=== PATIENT | female | born 1985 | race Caucasian/White ===

== ENCOUNTER 2018-05-31 00:14 | Inpatient (IN) ==
--- NOTE | 2018-05-31 01:14 | ED ---
History of Present Illness Primary Care Physician: UNKNOWN Chief Complaint: LOF History of Present Illness: Pt is a 33y/o @ 33.1wks. She has PNC with [employer] Mejia. She was at her baby shower last night and had a gush of fluid at 8pm. She wasn't sure what it was and called the office and was advised to come in. She denies VB, ctx. +FM. OBHx: 1. 2. current Weeks Gestation:: 33 Para: 1 : 3 Review of Systems All other systems reviewed negative except as stated in HPI Medications and Allergies Allergies Allergy/AdvReac Type Severity Reaction Status Date / Time No Known Allergies Allergy Unverified 05/31/18 01:10 Home Medications Medication Instructions Recorded Confirmed Type vit-iron fum-folic ac 1 tab PO DAILY 05/31/18 05/31/18 History [ Vitamin] Exam Vital signs: Vital Signs 05/31/18 00:42 05/31/18 00:44 Temperature 97.8 F Pulse Rate 89 Respiratory Rate 20 Blood Pressure 117/60 Narrative: General: well developed, well nourished, no acute distress HEENT: normocephalic atraumatic, extraocular movements intact, neck supple Abdomen: soft, gravid, nontender, nondistended Uterus: fundus soft Extremities: full range of motion Skin: normal coloration, no rashes, no suspicious skin lesions noted Neurologic: cranial nerves 2-12 grossly intact, normal muscle tone, normal gait Psychiatric: normal mood and affect, appropriate FHTs: 120, +accels, no decels, moderate variability, reactive [place]: irregular ctx Cvx: deferred, grossly ruptured, amnisure positive Assessment and Plan - Diagnosis (1) 33 weeks gestation of Code(s): Z3A.33 - 33 weeks gestation of Status: Acute (2) premature rupture of membranes (PPROM) with unknown onset of labor Code(s): O42.919 - premature rupture of membranes, unspecified as to length of time between rupture and onset of labor, unspecified trimester Status: Acute - Plan 33y/o @ 33.1wks with PPROM. -- FHTs cat 1 -- toco with irregular ctx -- amnisure positive -- admit to [facility] -- CEFM/toco -- latency abx -- tocolytics -- BMZ x2 -- GBS and PNLs ordered Pt and counseled on findings and plan of care. Discharge Plan - Discharge Disposition Patient Disposition: 30 Still Patient - Discharge Condition Condition: Stable - Physicians Team ED Provider: Analy Lemus V Primary Care Provider: UNKNOWN, - Rxs /Orders / Referrals /Forms Prescriptions: No Action vit-iron fum-folic ac [ Vitamin] 27 mg iron- 0.8 mg Tablet 1 tab PO DAILY - Discharge Instructions Print Language: Slovak
[2018-05-31] MEDS ORDERED: Aluminum/Magnesium/Simethacone Susp 30 ML UDC PO PRN (01:17)
[2018-05-31] MEDS ORDERED: Zolpidem Tartrate 5 MG Tablet PO PRN (01:17)
[2018-05-31] MEDS ORDERED: Acetaminophen 325 MG Tablet PO PRN (01:17)
[2018-05-31 01:50] LABS: Hematocrit 37.5 % (35.0-46.0); Hemoglobin 12.7 gm/dL (11.6-15.3); Mean Corpuscular HGB Conc 33.9 % (32.0-36.0); Mean Corpuscular Hemoglobin 29.5 pg (27.0-34.0); Mean Corpuscular Volume 87.1 fL (80.0-100.0); Mean Platelet Volume 8.1 fL (7.0-11.0); Platelet Count 297 th/mm3 (150-450); Red Blood Count 4.31 mil/mm3 (4.00-5.30); Red Cell Distribution Width 13.4 % (11.6-17.2); White Blood Count 14.9 th/mm3 (4.0-11.0)
[2018-05-31 01:57] LABS: Bilirubin,Urine Negative (Negative); Clarity,Urine Clear (Clear); Color,Urine Yellow (Yellw/Straw); Glucose,Urine (UA) Negative (Negative); Leukocyte Esterase,Urine Negative (Negative); Mucus,Urine Few /lpf (Occasional); Nitrite,Urine Negative (Negative); Squamous Epithelial Cell,Urine <1 /hpf (0-5)
[2018-05-31] MEDS ORDERED: Erythromycin Inj 250 MG in Sodium Chlor 0.9% Inj 100 ML IV.SIG SCH (02:00)
[2018-05-31 02:04] LABS: Amphetamine Screen,Urine Neg (Neg); Barbiturate Screen,Urine Neg (Neg); Cannabinoid Screen,Urine Neg (Neg); Cocaine Screen,Urine Neg (Neg)
[2018-05-31 02:07] LABS: Opiate Screen,Urine Neg (Neg)
[2018-05-31] MEDS: Betamethasone Sod Phos/Acetate Inj 30 MG/5 ML Vial IM SCH ×2 (02:21→03:42)
[2018-05-31] MEDS: NIFEdipine 10 MG Capsule PO SCH ×5 (02:21→20:37)
[2018-05-31 03:10] LABS: Hepatitis A IgM Antibody Nonreactive (Nonreactive); Hepatitits B Surface Antigen Nonreactive (Nonreactive)
[2018-05-31] MEDS: Azithromycin Inj 500 MG in Sodium Chlor 0.9% Inj 250 ML IV.SIG SCH (04:05)
[2018-05-31] MEDS ORDERED: NIFEdipine 10 MG Capsule PO SCH (08:00)
[2018-05-31] MEDS: Ferrous Sulfate 325 MG Tablet PO SCH ×2 (08:34→20:37)
[2018-05-31] MEDS: Docusate Sodium 100 MG Capsule PO SCH (08:34)
[2018-05-31] MEDS: Prenatal Vit/Ca/Iron/Folic Acid Tablet PO SCH (08:34)
--- NOTE | 2018-05-31 13:16 | P.HPOB ---
History of Present Illness Primary Care Physician: UNKNOWN Chief Complaint: LOF History of Present Illness: Pt is a 33y/o @ 33.1wks. She has PNC with [employer] Mejia. She was at her baby shower last night and had a gush of fluid at 8pm. She wasn't sure what it was and called the office and was advised to come in. She denies VB, ctx. +FM. OBHx: 1. 2. current Weeks Gestation:: 33 Para: 1 : 3 Review of Systems All other systems reviewed negative except as stated in HPI Medications and Allergies Allergies Allergy/AdvReac Type Severity Reaction Status Date / Time No Known Allergies Allergy Unverified 05/31/18 01:10 Home Medications Medication Instructions Recorded Confirmed Type vit-iron fum-folic ac 1 tab PO DAILY 05/31/18 05/31/18 History [ Vitamin] Exam Vital signs: Vital Signs 05/31/18 00:42 05/31/18 00:44 Temperature 97.8 F Pulse Rate 89 Respiratory Rate 20 Blood Pressure 117/60 Narrative: General: well developed, well nourished, no acute distress HEENT: normocephalic atraumatic, extraocular movements intact, neck supple Abdomen: soft, gravid, nontender, nondistended Uterus: fundus soft Extremities: full range of motion Skin: normal coloration, no rashes, no suspicious skin lesions noted Neurologic: cranial nerves 2-12 grossly intact, normal muscle tone, normal gait Psychiatric: normal mood and affect, appropriate FHTs: 120, +accels, no decels, moderate variability, reactive [place]: irregular ctx Cvx: deferred, grossly ruptured, amnisure positive Assessment and Plan - Diagnosis (1) 33 weeks gestation of Code(s): Z3A.33 - 33 weeks gestation of Status: Acute (2) premature rupture of membranes (PPROM) with unknown onset of labor Code(s): O42.919 - premature rupture of membranes, unspecified as to length of time between rupture and onset of labor, unspecified trimester Status: Acute - Plan 33y/o @ 33.1wks with PPROM. -- FHTs cat 1 -- toco with irregular ctx -- amnisure positive -- admit to [facility] -- CEFM/toco -- latency abx -- tocolytics -- BMZ x2 -- GBS and PNLs ordered Pt and counseled on findings and plan of care. Discharge Plan - Discharge Disposition Patient Disposition: 30 Still Patient - Discharge Condition Condition: Stable - Physicians Team ED Provider: Analy Lemus V Primary Care Provider: [place], - Rxs /Orders / Referrals /Forms Prescriptions: No Action vit-iron fum-folic ac [ Vitamin] 27 mg iron- 0.8 mg Tablet 1 tab PO DAILY The patient was seen and examined by me and I participated in all vela decision making. Admit for PPROM with routine PPROM management. Reassuring testing. Bedside ultrasound with breech presentation noted. SMS
[2018-06-01] MEDS: NIFEdipine 10 MG Capsule PO SCH ×3 (01:57→14:29)
[2018-06-01] MEDS: Azithromycin Inj 500 MG in Sodium Chlor 0.9% Inj 250 ML IV.SIG SCH (03:41)
[2018-06-01] MEDS: Betamethasone Sod Phos/Acetate Inj 30 MG/5 ML Vial IM SCH (03:41)
[2018-06-01] MEDS: Ferrous Sulfate 325 MG Tablet PO SCH (09:00)
--- NOTE | 2018-06-01 09:50 | P.OBANTE ---
Subjective Interval History: Patient seen at bedside today and reports feeling "okay". She had no acute events overnight. Patient reports non-bloody clear vaginal discharge that is not malodorous. She is currently not experiencing any contractions. She denies any dysuria, suprapubic tenderness, nausea, vomiting, fevers, chills, difficulty breathing or chest pain. She also denies any recent lower extremity pain or swelling. Patient did express concern over the baby being in breach position and it was discussed with her that she will be undergoing an ultrasound later today to confirm position. Antepartum ROS: Reports: Loss of fluid, movement normal Denies: Vaginal bleeding Objective Vital Signs and I&O: Vital Signs 05/31/18 12:21 05/31/18 14:23 05/31/18 15:37 Temperature 98.3 F 98.2 F 98.1 F Pulse Rate 100 H 103 H Respiratory Rate 18 18 Blood Pressure 115/60 110/67 05/31/18 17:56 05/31/18 19:28 05/31/18 22:16 Temperature 98.1 F 97.7 F 97.9 F Pulse Rate 90 Respiratory Rate 18 Blood Pressure 115/55 L 05/31/18 23:38 05/31/18 23:39 06/01/18 02:00 Temperature 98.7 F 98.7 F Pulse Rate 87 Respiratory Rate 16 Blood Pressure 100/47 L 06/01/18 03:48 Temperature 97.7 F Pulse Rate 87 Respiratory Rate 18 Blood Pressure 98/60 L Intake & Output 05/31/18 06/01/18 06/01/18 18:59 06:59 18:59 Intake Total 1100 / 1100 1300 / 1300 Balance 1100 / 1100 1300 / 1300 Intake: IV 1100 / 1100 1300 / 1300 LR 1000 mL Inj 1,000 ML @ 125 1000 / 1000 1000 / 1000 mls/hr IV.CONT .Q8H [facility] Rx#: [id number] Ampicillin Inj 2,000 MG In NS 100 / 100 300 / 300 Inj 100 ML @ 400 mls/hr IV.SIG Q6H [facility] Rx#:[id number] Physical Exam: GENERAL: Well-nourished, well-developed patient. CARDIOVASCULAR: Regular rate and rhythm without murmurs, gallops, or rubs. RESPIRATORY: Breath sounds equal bilaterally. No accessory muscle use. ABDOMEN/GI: Abdomen soft, non-tender. FHT's: Category: 1 Baseline: 120 Reactive: Y Variability: Moderate Decels: None EXTREMITIES: No cyanosis or edema, non-tender, without signs of DVT. Assessment and Plan - Diagnosis (1) premature rupture of membranes (PPROM) with unknown onset of labor Code(s): O42.919 - premature rupture of membranes, unspecified as to length of time between rupture and onset of labor, unspecified trimester Status: Acute - Plan 33y/o @ 33.1wks with PPROM on 05/30/18 at 2000hrs. Status post betamethasone X2. -- FHTs cat 1 -- amnisure positive -- CEFM/toco -- Continue Ampicillin 2g IV Q6 until 0600 06/02/18 -- Begin Amoxicillin 500 PO TID at 0600 on 06/02/18 -- tocolytics -- GBS and PNLs ordered Pt and counseled on findings and plan of care. - Attending Attestation The patient was seen and examined by me and I participated in all vela decision making. Admited for PPROM with routine PPROM management. Reassuring testing. Bedside ultrasound with breech presentation noted by attending yesterday. Patient having ultrasound with [facility] today for EFW. SMS
[2018-06-01] MEDS: Docusate Sodium 100 MG Capsule PO SCH (09:53)
[2018-06-01] MEDS: Prenatal Vit/Ca/Iron/Folic Acid Tablet PO SCH (09:54)
[2018-06-02] MEDS: Ferrous Sulfate 325 MG Tablet PO SCH ×2 (01:18→09:02)
[2018-06-02] MEDS: NIFEdipine 10 MG Capsule PO SCH ×4 (01:18→14:05)
[2018-06-02] MEDS ORDERED: ERYTHROMYCIN BASE PO SCH (06:00)
[2018-06-02] MEDS ORDERED: Amoxicillin 250 MG Capsule PO SCH (06:00)
[2018-06-02] MEDS: Docusate Sodium 100 MG Capsule PO SCH (09:02)
[2018-06-02] MEDS: Prenatal Vit/Ca/Iron/Folic Acid Tablet PO SCH (09:02)
--- NOTE | 2018-06-02 11:18 | P.OBANTE ---
Subjective - Diagnosis (1) premature rupture of membranes (PPROM) with unknown onset of labor Diagnosis: Principal Interval History: Patient was seen at bedside this morning. There were no acute events overnight. Patient reports continued clear non-malodorous vaginal discharge and denies any vaginal bleeding. She reports good movement. Patient denies any subjective fevers, chills, shortness of breath, chest pain, nausea, or vomiting. All questions were answered to the patient's satisfaction. Objective Vital Signs and I&O: Vital Signs 06/01/18 14:37 06/01/18 15:00 06/01/18 20:00 Temperature 98.2 F 97.9 F Pulse Rate 89 91 H Respiratory Rate 18 18 Blood Pressure 111/60 100/69 100/54 L 06/02/18 02:08 06/02/18 03:00 06/02/18 08:38 Temperature 98.3 F 98.9 F Pulse Rate 85 88 Respiratory Rate 18 16 Blood Pressure 94/46 L 102/53 L Intake & Output 06/01/18 06/02/18 06/02/18 18:59 06:59 18:59 Intake Total 1200 / 1200 1000 / 1000 Balance 1200 / 1200 1000 / 1000 Intake: IV 1200 / 1200 1000 / 1000 LR 1000 mL Inj 1,000 ML @ 125 1000 / 1000 1000 / 1000 mls/hr IV.CONT .Q8H [facility] Rx#: [id number] Ampicillin Inj 2,000 MG In NS 200 / 200 Inj 100 ML @ 400 mls/hr IV.SIG Q6H [facility] Rx#:[id number] Lab and Micro Results: Microbiology 05/31/18 01:32 Group B Streptococcus Screen ([facility]) - Preliminary Genital - Genital Region Results Pending Physical Exam: GENERAL: Well-nourished, well-developed patient. CARDIOVASCULAR: Regular rate and rhythm without murmurs, gallops, or rubs. RESPIRATORY: Breath sounds equal bilaterally. No accessory muscle use. ABDOMEN/GI: Abdomen soft, non-tender. Fundus: [-] GENITOURINARY: External Genitalia: intact and normal in appearance Cervix: [-] Dilatation: [-] Effacement: [-] Station: [-] Presentation: [-] Membranes: [-] Uterine Contractions: [-] FHT's: Category: [-] Baseline: [-] Reactive: [-] Variability: [-] Decels: [-] EXTREMITIES: No cyanosis or edema, non-tender, without signs of DVT. Assessment and Plan - Diagnosis (1) premature rupture of membranes (PPROM) with unknown onset of labor Code(s): O42.919 - premature rupture of membranes, unspecified as to length of time between rupture and onset of labor, unspecified trimester Status: Acute - Plan 33y/o @ 33.1wks with PPROM on 05/30/18 at 2000hrs. Status post betamethasone X2. -- FHTs cat 1 -- amnisure positive -- CEFM/toco -- Continue Amoxicillin 500 PO TID -- tocolytics -- GBS negative/ Rubella immune Pt and counseled on findings and plan of care.
[2018-06-03] MEDS: NIFEdipine 10 MG Capsule PO SCH ×5 (02:38→20:33)
[2018-06-03] MEDS: Ferrous Sulfate 325 MG Tablet PO SCH ×3 (03:05→20:33)
[2018-06-03] MEDS: Docusate Sodium 100 MG Capsule PO SCH (08:23)
[2018-06-03] MEDS: Prenatal Vit/Ca/Iron/Folic Acid Tablet PO SCH (08:23)
--- NOTE | 2018-06-03 10:39 | P.OBANTE ---
Subjective Interval History: Patient was seen at bedside this morning. There were no acute events overnight. Patient no longer experiencing any loss of clear non-malodorous vaginal discharge and denies any vaginal bleeding. She reports good movement. Patient denies any subjective fevers, chills, shortness of breath, chest pain, nausea, or vomiting. All questions were answered to the patient's satisfaction. Objective Vital Signs and I&O: Vital Signs 06/02/18 13:00 06/02/18 15:00 06/02/18 16:00 Temperature 98.9 F 97.9 F Pulse Rate 90 Respiratory Rate 18 Blood Pressure 102/54 L 06/02/18 18:00 06/02/18 20:08 06/02/18 23:00 Temperature 97.9 F 98.1 F 98.6 F Pulse Rate 82 83 Respiratory Rate 18 18 Blood Pressure 110/59 L 103/54 L 06/03/18 02:56 06/03/18 08:28 06/03/18 08:29 Temperature 98.2 F 97.4 F L Pulse Rate 82 84 Respiratory Rate 18 18 Blood Pressure 100/56 L 117/68 Intake & Output 06/02/18 06/03/18 06/03/18 18:59 06:59 18:59 Intake Total 1000 / 1000 Balance 1000 / 1000 Intake: IV 1000 / 1000 LR 1000 mL Inj 1,000 ML @ 125 1000 / 1000 mls/hr IV.CONT .Q8H [facility] Rx#: [id number] Lab and Micro Results: Microbiology 05/31/18 01:32 Group B Streptococcus Screen ([facility]) - Final Genital - Genital Region No Group B Strep isolated Physical Exam: GENERAL: Well-nourished, well-developed patient. CARDIOVASCULAR: Regular rate and rhythm without murmurs, gallops, or rubs. RESPIRATORY: Breath sounds equal bilaterally. No accessory muscle use. ABDOMEN/GI: Abdomen soft, non-tender. GENITOURINARY: FHT's: Category: 1 Baseline: 140 Reactive: Yes Variability: Moderate Decels: Occasional variable decelerations EXTREMITIES: No cyanosis or edema, non-tender, without signs of DVT. Assessment and Plan - Diagnosis (1) premature rupture of membranes (PPROM) with unknown onset of labor Code(s): O42.919 - premature rupture of membranes, unspecified as to length of time between rupture and onset of labor, unspecified trimester Status: Acute - Plan 33y/o at 33.1wks with PPROM on 05/30/18 at 2000hrs currently scheduled for on the of this month. Status post betamethasone X2. -- FHTs cat 1 -- amnisure positive -- CEFM/toco -- Continue Amoxicillin 500 PO TID -- tocolytics -- GBS negative/ Rubella immune Pt and counseled on findings and plan of care.
[2018-06-04] MEDS: NIFEdipine 10 MG Capsule PO SCH ×4 (01:44→20:11)
[2018-06-04 08:03] LABS: Baso % (Auto) 0.2 % (0.0-2.0); Eos # (Auto) 0.2 th/mm3 (0.0-0.4); Eos % (Auto) 1.4 % (0.0-4.0); Hemoglobin 11.6 gm/dL (11.6-15.3); Lymph # (Auto) 2.1 th/mm3 (1.0-4.8); Lymph % (Auto) 16.4 % (9.0-44.0); Mean Corpuscular HGB Conc 34.1 % (32.0-36.0); Mean Corpuscular Hemoglobin 29.9 pg (27.0-34.0); Mean Corpuscular Volume 87.6 fL (80.0-100.0); Mean Platelet Volume 8.8 fL (7.0-11.0); Mono % (Auto) 7.6 % (0.0-8.0); Neut # (Auto) 9.3 th/mm3 (1.8-7.7); Neut % (Auto) 74.4 % (16.0-70.0); Platelet Count 284 th/mm3 (150-450); Red Blood Count 3.88 mil/mm3 (4.00-5.30); Red Cell Distribution Width 13.7 % (11.6-17.2); White Blood Count 12.5 th/mm3 (4.0-11.0)
[2018-06-04] MEDS: Ferrous Sulfate 325 MG Tablet PO SCH ×2 (08:26→20:11)
[2018-06-04] MEDS: Docusate Sodium 100 MG Capsule PO SCH (08:26)
--- NOTE | 2018-06-04 09:34 | P.OBANTE ---
Subjective Interval History: Patient was seen at bedside this morning. There were no acute events overnight. Patient reports experiencing loss of clear non-malodorous vaginal discharge but denies any vaginal bleeding. She reports good movement. Patient denies any subjective fevers, chills, shortness of breath, chest pain, nausea, or vomiting. All questions were answered to the patient's satisfaction. Objective Vital Signs and I&O: Vital Signs 06/03/18 12:53 06/03/18 12:55 06/03/18 15:03 Temperature 98.2 F 97.8 F Pulse Rate 88 81 Respiratory Rate 18 20 Blood Pressure 116/59 L 120/63 06/03/18 19:51 06/03/18 22:00 06/03/18 23:22 Temperature 97.7 F 98.0 F 98.2 F Pulse Rate 84 80 Respiratory Rate 18 16 Blood Pressure 119/68 100/47 L 06/04/18 01:44 06/04/18 03:48 06/04/18 03:50 Temperature 98.8 F 98.3 F Pulse Rate 82 Respiratory Rate 16 Blood Pressure 95/49 L 06/04/18 06:00 06/04/18 07:43 06/04/18 08:30 Temperature 98.1 F 97.5 F L Pulse Rate 78 Respiratory Rate 17 18 Blood Pressure 117/56 L Intake & Output 06/03/18 06/04/18 06/04/18 18:59 06:59 18:59 Intake Total 1000 / 1000 1000 / 1000 Balance 1000 / 1000 1000 / 1000 Intake: IV 1000 / 1000 1000 / 1000 LR 1000 mL Inj 1,000 ML @ 125 1000 / 1000 1000 / 1000 mls/hr IV.CONT .Q8H [facility] Rx#: [id number] Lab and Micro Results: Laboratory Results - last 24 hr 06/04/18 06:50 WBC 12.5 H RBC 3.88 L Hgb 11.6 Hct 34.0 L MCV 87.6 MCH 29.9 MCHC 34.1 RDW 13.7 Plt Count 284 MPV 8.8 Neut % (Auto) 74.4 H Lymph % (Auto) 16.4 [place] % (Auto) 7.6 Eos % (Auto) 1.4 Baso % (Auto) 0.2 Neut # (Auto) 9.3 H Lymph # (Auto) 2.1 [place] # (Auto) 1.0 H Eos # (Auto) 0.2 Baso # (Auto) 0.0 WBC Differential . Differential Comment Auto diff final Microbiology 05/31/18 01:32 Group B Streptococcus Screen ([facility]) - Final Genital - Genital Region No Group B Strep isolated Physical Exam: GENERAL: Well-nourished, well-developed patient. CARDIOVASCULAR: Regular rate and rhythm without murmurs, gallops, or rubs. RESPIRATORY: Breath sounds equal bilaterally. No accessory muscle use. Abdomen: No abdominal or uterine tenderness FHT's: Category: 1 Baseline: 140s Reactive: Yes Variability: Moderate Decels: None EXTREMITIES: No cyanosis or edema, non-tender, without signs of DVT. Assessment and Plan - Diagnosis (1) premature rupture of membranes (PPROM) with unknown onset of labor Code(s): O42.919 - premature rupture of membranes, unspecified as to length of time between rupture and onset of labor, unspecified trimester Status: Acute - Plan 33y/o at 33wks and 5 days with PPROM on 05/30/18 at 2000hrs currently scheduled for on the of this month. Status post betamethasone X2. Currently afebrile, no purulent or malodorous vaginal discharge, no uterine or abdominal tenderness. -- FHTs cat 1 -- amnisure positive -- CEFM/toco -- Continue Amoxicillin 500 PO TID -- tocolytics -- GBS negative/ Rubella immune --Continue to monitor for any signs of infection
[2018-06-04] MEDS: Prenatal Vit/Ca/Iron/Folic Acid Tablet PO SCH ×2 (10:55)
[2018-06-05] MEDS: NIFEdipine 10 MG Capsule PO SCH ×4 (01:34→20:36)
[2018-06-05] MEDS: Ferrous Sulfate 325 MG Tablet PO SCH ×2 (08:30→20:36)
[2018-06-05] MEDS: Docusate Sodium 100 MG Capsule PO SCH (08:41)
--- NOTE | 2018-06-05 10:50 | P.OBANTE ---
Subjective Interval History: Patient was seen at bedside this morning. There were no acute events overnight. Patient reports experiencing mild loss of clear non-malodorous vaginal discharge but denies any vaginal bleeding. She reports good movement. Patient denies any subjective fevers, chills, shortness of breath, chest pain, nausea, or vomiting. She also denies any lower extremity swelling or calf pain. All questions were answered to the patient's satisfaction. Objective Vital Signs and I&O: Vital Signs 06/04/18 12:46 06/04/18 16:34 06/04/18 16:45 Temperature 97.5 F L 98.0 F Pulse Rate 88 Respiratory Rate 17 18 Blood Pressure 122/69 06/04/18 16:46 06/04/18 20:09 06/04/18 20:13 Temperature 97.8 F Pulse Rate 86 86 Respiratory Rate 18 Blood Pressure 102/57 L 123/67 06/05/18 01:35 06/05/18 05:14 06/05/18 07:29 Temperature 98.4 F 97.8 F Pulse Rate 79 80 Respiratory Rate 18 16 17 Blood Pressure 87/45 L 101/49 L 06/05/18 08:34 Temperature 97.7 F Pulse Rate 84 Respiratory Rate 17 Blood Pressure 121/67 Intake & Output 06/04/18 06/05/18 06/05/18 18:59 06:59 18:59 Intake Total 1999 Balance 1999 Intake: IV 1999 LR 1000 mL Inj 1,000 ML @ 125 1999 mls/hr IV.CONT .Q8H [facility] Rx#: [id number] Physical Exam: GENERAL: Well-nourished, well-developed patient. CARDIOVASCULAR: Regular rate and rhythm without murmurs, gallops, or rubs. RESPIRATORY: Breath sounds equal bilaterally. No accessory muscle use. ABDOMEN/GI: Abdomen soft, non-tender. Gravid. No uterine tenderness. FHT's: Category: 1 Baseline: 150s Reactive: Yes Variability: Moderate Decels: None EXTREMITIES: No cyanosis or edema, non-tender, without signs of DVT. Assessment and Plan - Diagnosis (1) premature rupture of membranes (PPROM) with unknown onset of labor Code(s): O42.919 - premature rupture of membranes, unspecified as to length of time between rupture and onset of labor, unspecified trimester Status: Acute - Plan 33y/o at 33wks and 5 days with PPROM on 05/30/18 at 2000hrs currently scheduled for on the of this month. Status post betamethasone X2. Currently afebrile, no purulent or malodorous vaginal discharge, no uterine or abdominal tenderness. -- FHTs cat 1 -- amnisure positive -- CEFM/toco -- Continue Amoxicillin 500 PO TID -- tocolytics -- GBS negative/ Rubella immune -- Continue to monitor for any signs of infection - Attending Attestation The exam, history, and the medical decision-making described in the above note were completed with the assistance of the resident physician. I reviewed and agree with the findings presented. I attest that I had a [id number] encounter with the patient on the same day, and personally performed and documented my assessment and findings in the medical record.
[2018-06-05] MEDS: Prenatal Vit/Ca/Iron/Folic Acid Tablet PO SCH ×2 (12:16)
[2018-06-06] MEDS: NIFEdipine 10 MG Capsule PO SCH ×4 (01:58→20:20)
--- NOTE | 2018-06-06 09:18 | P.OBANTE ---
Subjective Interval History: No contractions, but noting mild pressure. No fevers/chills, no malodorous discharge. Objective Vital Signs and I&O: Vital Signs 06/05/18 12:00 06/05/18 13:45 06/05/18 17:00 Temperature 97.8 F 97.6 F Pulse Rate 85 Respiratory Rate 18 17 Blood Pressure 121/59 L 06/05/18 18:50 06/05/18 20:24 06/05/18 21:00 Temperature 98.1 F Pulse Rate 81 Respiratory Rate 18 18 Blood Pressure 121/74 06/06/18 07:39 Temperature Pulse Rate 94 H Respiratory Rate Blood Pressure 125/84 Intake & Output 06/05/18 06/06/18 06/06/18 18:59 06:59 18:59 Weight 73 kg Other: Weight On Admission 73 kg Physical Exam: GENERAL: Well-nourished, well-developed patient. CARDIOVASCULAR: Regular rate and rhythm without murmurs, gallops, or rubs. RESPIRATORY: Breath sounds equal bilaterally. No accessory muscle use. ABDOMEN/GI: Abdomen soft, non-tender. Fundus: [-] GENITOURINARY: External Genitalia: intact and normal in appearance Cervix: [-] Dilatation: [-] Effacement: [-] Station: [-] Presentation: [-] Membranes: [-] Uterine Contractions: [-] FHT's: Category: [-] Baseline: [-] Reactive: [-] Variability: [-] Decels: [-] EXTREMITIES: No cyanosis or edema, non-tender, without signs of DVT. Assessment and Plan - Diagnosis (1) 33 weeks gestation of Code(s): Z3A.33 - 33 weeks gestation of Status: Acute (2) premature rupture of membranes (PPROM) with unknown onset of labor Code(s): O42.919 - premature rupture of membranes, unspecified as to length of time between rupture and onset of labor, unspecified trimester Status: Acute - Plan 33y/o at 34 weeks with PPROM on 05/30/18 at 2000hrs currently scheduled for on the of this month. Status post betamethasone X2. Currently afebrile, no purulent or malodorous vaginal discharge, no uterine or abdominal tenderness. -- FHTs cat 1 -- amnisure positive -- CEFM/toco -- Continue Amoxicillin 500 PO TID -- tocolytics -- GBS negative/ Rubella immune -- Continue to monitor for any signs of infection -- Patient refused labs today, will attempt again tomorrow I discussed the risks of continued expectant management vs immediate delivery. The patient declines delivery today.
[2018-06-06] MEDS: Prenatal Vit/Ca/Iron/Folic Acid Tablet PO SCH (09:24)
[2018-06-06] MEDS: Ferrous Sulfate 325 MG Tablet PO SCH ×2 (09:25→20:19)
[2018-06-06] MEDS: Docusate Sodium 100 MG Capsule PO SCH (09:25)
[2018-06-06 12:26] LABS: Baso % (Auto) 0.2 % (0.0-2.0); Eos # (Auto) 0.1 th/mm3 (0.0-0.4); Eos % (Auto) 1.1 % (0.0-4.0); Hematocrit 37.3 % (35.0-46.0); Hemoglobin 12.5 gm/dL (11.6-15.3); Lymph # (Auto) 1.6 th/mm3 (1.0-4.8); Lymph % (Auto) 13.1 % (9.0-44.0); Mean Corpuscular HGB Conc 33.5 % (32.0-36.0); Mean Corpuscular Hemoglobin 29.6 pg (27.0-34.0); Mean Corpuscular Volume 88.4 fL (80.0-100.0); Mean Platelet Volume 8.3 fL (7.0-11.0); Mono # (Auto) 0.7 th/mm3 (0.0-0.9); Mono % (Auto) 6.2 % (0.0-8.0); Neut # (Auto) 9.4 th/mm3 (1.8-7.7); Neut % (Auto) 79.4 % (16.0-70.0); Platelet Count 293 th/mm3 (150-450); Red Blood Count 4.22 mil/mm3 (4.00-5.30); Red Cell Distribution Width 14.1 % (11.6-17.2); White Blood Count 11.9 th/mm3 (4.0-11.0)
[2018-06-07] MEDS: NIFEdipine 10 MG Capsule PO SCH ×4 (01:38→20:12)
[2018-06-07] MEDS: Docusate Sodium 100 MG Capsule PO SCH (08:37)
[2018-06-07] MEDS: Prenatal Vit/Ca/Iron/Folic Acid Tablet PO SCH (08:38)
[2018-06-07] MEDS: Ferrous Sulfate 325 MG Tablet PO SCH ×2 (08:38→20:12)
--- NOTE | 2018-06-07 09:39 | P.OBANTE ---
Subjective Interval History: No complaints or issues this morning. States she thinks she is having for fluid discharge than usual, describes it as clear, occurs around the time she has been urinating. No pain, fever, sick-symptoms, shortness of breath, or chest pain. Objective Vital Signs and I&O: Vital Signs 06/06/18 12:00 06/06/18 18:00 06/06/18 20:19 Temperature 98.3 F 97.8 F Pulse Rate 83 108 H 88 Respiratory Rate 18 20 16 Blood Pressure 120/56 L 136/62 122/72 06/06/18 21:25 06/06/18 23:00 06/07/18 01:35 Temperature 98.2 F 97.7 F 98.4 F Pulse Rate 87 Respiratory Rate 14 16 Blood Pressure 113/67 06/07/18 01:36 06/07/18 05:51 06/07/18 08:39 Temperature 98.6 F Pulse Rate 88 Respiratory Rate 14 18 Blood Pressure 115/55 L Intake & Output 06/06/18 06/07/18 06/07/18 18:59 06:59 18:59 Weight 73 kg Other: Weight On Admission 73 kg Lab and Micro Results: Laboratory Results - last 24 hr 06/06/18 11:51 WBC 11.9 H RBC 4.22 Hgb 12.5 Hct 37.3 MCV 88.4 MCH 29.6 MCHC 33.5 RDW 14.1 Plt Count 293 MPV 8.3 Neut % (Auto) 79.4 H Lymph % (Auto) 13.1 [place] % (Auto) 6.2 Eos % (Auto) 1.1 Baso % (Auto) 0.2 Neut # (Auto) 9.4 H Lymph # (Auto) 1.6 [place] # (Auto) 0.7 Eos # (Auto) 0.1 Baso # (Auto) 0.0 WBC Differential . Differential Comment Auto diff final Physical Exam: GENERAL: Well-nourished, well-developed patient. CARDIOVASCULAR: Regular rate and rhythm without murmurs, gallops, or rubs. RESPIRATORY: Breath sounds equal bilaterally. No accessory muscle use. ABDOMEN/GI: Abdomen soft, non-tender. Fundus: [-] GENITOURINARY: FHT's: Category: [-] Baseline: [-] Reactive: [-] Variability: [-] Decels: [-] EXTREMITIES: No cyanosis or edema, non-tender, without signs of DVT. Assessment and Plan - Diagnosis (1) premature rupture of membranes (PPROM) with unknown onset of labor Code(s): O42.919 - premature rupture of membranes, unspecified as to length of time between rupture and onset of labor, unspecified trimester Status: Acute - Plan 33y/o at 34 weeks with PPROM on 05/30/18 at 2000hrs currently scheduled for tomorrow. Status post betamethasone X2. Currently afebrile, no purulent or malodorous vaginal discharge, no uterine or abdominal tenderness.GBS negative/ Rubella immune -- FHTs have been cat 1 -- Continue Amoxicillin 500 PO TID -- tocolytics -- Continue to monitor for any signs of infection -- Labs from yesterday continue to show elevated but stable WBC. -- CBC ordered for tomorrow morning, NPO after midnight. Will be on maintenance IVF at that time. Discussed w/Dr. Davis
[2018-06-07] MEDS ORDERED: Citric Acid/Sodium Citrate Liq 30 ML UDC PO SCH (23:30)
[2018-06-07] MEDS ORDERED: ceFAZolin Inj 2,000 MG in Sodium Chlor 0.9% Inj 80 ML IV.SIG SCH (23:45)
[2018-06-08] MEDS ORDERED: Sod Chloride 0.9% Inj 1,000 ML IV.CONT SCH
[2018-06-08] MEDS: NIFEdipine 10 MG Capsule PO SCH ×3 (01:12→16:40)
[2018-06-08 06:15] LABS: Hematocrit 35.3 % (35.0-46.0); Hemoglobin 11.9 gm/dL (11.6-15.3); Mean Corpuscular HGB Conc 33.6 % (32.0-36.0); Mean Corpuscular Volume 89.1 fL (80.0-100.0); Mean Platelet Volume 8.3 fL (7.0-11.0); Platelet Count 283 th/mm3 (150-450); Red Blood Count 3.96 mil/mm3 (4.00-5.30); Red Cell Distribution Width 14.2 % (11.6-17.2); White Blood Count 11.5 th/mm3 (4.0-11.0)
--- NOTE | 2018-06-08 09:46 | P.OBANTE ---
Subjective Interval History: Patient was seen at bedside this morning. There were no acute events overnight. Patient reports experiencing minimal loss of clear non-malodorous vaginal discharge but denies any vaginal bleeding. She reports good movement. Patient denies any subjective fevers, chills, shortness of breath, chest pain, nausea, or vomiting. She also denies any lower extremity swelling or calf pain. Patient reported using lotion/oils over abdomen and pelvis after showering this morning. Patient was advised to wash off any and all chemicals/ residues off of her skin in preparation for scheduled section to minimize possibility of infection. All questions were answered to the patient' s satisfaction. Objective Vital Signs and I&O: Vital Signs 06/07/18 11:40 06/07/18 11:41 06/07/18 16:58 Temperature 98.1 F 98.6 F Pulse Rate 86 93 H Respiratory Rate 18 18 Blood Pressure 124/65 117/69 06/07/18 20:04 06/07/18 22:39 06/08/18 07:59 Temperature 98.0 F 97.9 F 98.7 F Pulse Rate 85 96 H 93 H Respiratory Rate 16 16 16 Blood Pressure 126/70 117/66 114/75 Lab and Micro Results: Laboratory Results - last 24 hr 06/08/18 06/08/18 06:06 06:06 WBC 11.5 H RBC 3.96 L Hgb 11.9 Hct 35.3 MCV 89.1 MCH 30.0 MCHC 33.6 RDW 14.2 Plt Count 283 MPV 8.3 Blood Type AB Positive Antibody Screen Negative Physical Exam: GENERAL: Well-nourished, well-developed patient. CARDIOVASCULAR: Regular rate and rhythm without murmurs, gallops, or rubs. RESPIRATORY: Breath sounds equal bilaterally. No accessory muscle use. ABDOMEN/GI: Abdomen soft, non-tender. FHT's: Category: 1 Baseline: 150s Reactive: Yes Variability: Moderate Decels: None EXTREMITIES: No cyanosis or edema, non-tender, without signs of DVT. Assessment and Plan - Diagnosis (1) premature rupture of membranes (PPROM) with unknown onset of labor Code(s): O42.919 - premature rupture of membranes, unspecified as to length of time between rupture and onset of labor, unspecified trimester Status: Acute - Plan 33y/o at 34 weeks with PPROM on 05/30/18 at 2000hrs currently scheduled for this morning with Dr. Lynn. Status post betamethasone X2. Currently afebrile, no purulent or malodorous vaginal discharge, no uterine or abdominal tenderness.GBS negative/ Rubella immune. Type and screen comply with patient is a be positive antibody screen is negative. US this morning revealed that the fetus was no longer in breach presentation. - FHTs have been cat 1 - Induce for vaginal delivery for PPROM - Labs from this morning continue to show elevated but stable WBC. Currently no signs of infection. Discussed w/Dr. Lynn
[2018-06-08] MEDS: Docusate Sodium 100 MG Capsule PO SCH (09:51)
[2018-06-08] MEDS: Ferrous Sulfate 325 MG Tablet PO SCH (09:52)
[2018-06-08] MEDS: Prenatal Vit/Ca/Iron/Folic Acid Tablet PO SCH (09:52)
[2018-06-08] MEDS: Oxytocin 30 Units/500ml Premix 30 UNITS/500 ML BAG IV.SIG PRN (13:35)
[2018-06-09] MEDS: NIFEdipine 10 MG Capsule PO SCH ×3 (00:24→14:02)
[2018-06-09] MEDS: Ferrous Sulfate 325 MG Tablet PO SCH ×3 (06:24→22:07)
--- NOTE | 2018-06-09 10:32 | P.OBANTE ---
Subjective Interval History: Patient at 34 weeks and 2 days gestation. Patient was seen at bedside this morning. Yesterday, patient was induced for vaginal delivery due to PPROM after ultrasound revealed fetus was in cephalic presentation and no longer breech. There were no acute events overnight. Patient has made minimal cervical change overnight. Patient is currently on 30 of Pitocin. She continues to experience minimal loss of clear non-malodorous vaginal discharge but denies any vaginal bleeding. She reports good movement. Patient denies any subjective fevers , chills, shortness of breath, chest pain, nausea, or vomiting. She also denies any lower extremity swelling or calf pain. Objective Vital Signs and I&O: Vital Signs 06/08/18 10:52 06/08/18 11:34 06/08/18 12:56 Temperature 96.6 F L Pulse Rate 100 H Respiratory Rate 16 16 Blood Pressure 120/80 06/08/18 13:34 06/08/18 13:38 06/08/18 14:09 Temperature 97.5 F L Pulse Rate 76 Respiratory Rate 16 Blood Pressure 98/48 L 06/08/18 14:10 06/08/18 14:11 06/08/18 14:50 Temperature Pulse Rate 84 16 L 93 H Respiratory Rate 16 Blood Pressure 111/62 130/78 06/08/18 14:56 06/08/18 15:20 06/08/18 15:48 Temperature 98.0 F Pulse Rate 85 87 Respiratory Rate 20 20 16 Blood Pressure 128/78 116/69 06/08/18 16:22 06/08/18 16:48 06/08/18 17:19 Temperature Pulse Rate 81 80 Respiratory Rate 16 16 16 Blood Pressure 117/53 L 116/61 06/08/18 17:20 06/08/18 17:50 06/08/18 17:51 Temperature 98.0 F Pulse Rate 85 99 H Respiratory Rate 16 Blood Pressure 113/61 123/85 06/08/18 18:26 06/08/18 18:27 06/08/18 19:00 Temperature Pulse Rate 102 H 83 Respiratory Rate 20 Blood Pressure 126/71 110/62 06/09/18 00:15 06/09/18 06:16 06/09/18 07:19 Temperature 98.1 F 98.0 F Pulse Rate 78 79 86 Respiratory Rate 16 18 Blood Pressure 122/54 L 115/61 105/71 06/09/18 08:12 06/09/18 08:13 06/09/18 09:29 Temperature Pulse Rate 82 86 Respiratory Rate 20 Blood Pressure 116/64 110/60 Intake & Output 06/08/18 06/09/18 06/09/18 18:59 06:59 18:59 Intake Total 1000 / 1000 1100 / 1100 Balance 1000 / 1000 1100 / 1100 Intake: IV 1000 / 1000 1100 / 1100 LR 1000 mL Inj 1,000 ML @ 150 1000 / 1000 mls/hr IV.CONT .Q6H40M OMAR Rx#: [id number] Ampicillin Inj 2,000 MG In NS 100 / 100 Inj 100 ML @ 400 mls/hr IV.SIG Q6HR OMAR Rx#:[id number] LR 1000 mL Inj 1,000 ML @ 125 1000 / 1000 mls/hr IV.SIG .Q8H OMAR Rx#: [id number] Physical Exam: GENERAL: Well-nourished, well-developed patient. CARDIOVASCULAR: Regular rate and rhythm without murmurs, gallops, or rubs. RESPIRATORY: Breath sounds equal bilaterally. No accessory muscle use. ABDOMEN/GI: Abdomen gravid, soft, non-tender. GENITOURINARY: External Genitalia: intact and normal in appearance Cervix: [-] Dilatation: [-] Effacement: [-] Station: [-] Presentation: Cephalic Membranes: Ruptured on May 30 at 2000 hrs. Uterine Contractions: None FHT's: Category: 2 with 2 small variables, now category 1 after patient was repositioned. Baseline: 140s Reactive: Yes Variability: Moderate Decels: Infrequent variable decelerations EXTREMITIES: No cyanosis or edema, non-tender, without signs of DVT. Assessment and Plan - Diagnosis (1) premature rupture of membranes (PPROM) with unknown onset of labor Code(s): O42.919 - premature rupture of membranes, unspecified as to length of time between rupture and onset of labor, unspecified trimester Status: Acute - Plan 33 year old at 34.1wks and 2 days who is being induced first for vaginal delivery after presenting with PPROM on 05/30/18 at 2000hrs. Status post betamethasone X2. Patient has made minimal change overnight, has declined Cytotec. Currently on 30 of Pitocin, plan discussed with patient she is amenable to Cervidil if no change this afternoon. Continue to monitor heart strip, cervical checks every 4. -Cervidil if no change by p.m. -cervical checks every 4 - FHTs cat 1 - amnisure positive - Continue Ampicillin 2000 milligrams every 6 hours Pt and counseled on findings and plan of care. - Attending Attestation The patient was seen and examined by me and I participated in all vela decision making. Will continue induction of labor. Discussed risks/benefits/ laternatives to induction of labor. Discussed oxytocin vs additional cervical ripening. All of the patient's questions were answered. SMS
--- NOTE | 2018-06-09 11:11 | P.PN ---
Subjective Interval history: Patient is a 33-year-old with IUP at 34.1. She is undergoing induction of labor for PPROM. Upon admission the fetus was noted to be in the breech presentation, however has changed position and is now in the cephalic presentation. Induction of labor was started yesterday with oxytocin. The patient had an oxytocin rest overnight and is receiving oxytocin again today. The fetus has reassuring heart tones with an occasional mild variable deceleration that have responded to position change. Per report, the patient declined Cytotec for cervical ripening. I had a lengthy discussion with the patient regarding the plan of care. We discussed the use of oxytocin today with consideration for cervical ripening overnight if she does not enter labor. SVE closed/50/-3. We discussed the risks, benefits, and maternal/ indications for delivery. The patient is in agreement for delivery if medically indicated. We discussed cervical ripening options which would include Cytotec and Cervidil. We discussed the risks and benefits of both including the inability to remove the Cytotec versus the possible risk of infection with Cervidil as a foreign body in the vagina. The patient declines Cytotec. Will monitor closely today and reassess as needed. We discussed that a failed induction of labor would be an indication for delivery. Physical Exam Vital signs: Vital Signs 06/08/18 11:34 06/08/18 12:56 06/08/18 13:34 Temperature 96.6 F L Pulse Rate 76 Respiratory Rate 16 Blood Pressure 98/48 L 06/08/18 13:38 06/08/18 14:09 06/08/18 14:10 Temperature 97.5 F L Pulse Rate 84 Respiratory Rate 16 Blood Pressure 111/62 06/08/18 14:11 06/08/18 14:50 06/08/18 14:56 Temperature Pulse Rate 16 L 93 H Respiratory Rate 16 20 Blood Pressure 130/78 06/08/18 15:20 06/08/18 15:48 06/08/18 16:22 Temperature 98.0 F Pulse Rate 85 87 81 Respiratory Rate 20 16 16 Blood Pressure 128/78 116/69 117/53 L 06/08/18 16:48 06/08/18 17:19 06/08/18 17:20 Temperature Pulse Rate 80 85 Respiratory Rate 16 16 Blood Pressure 116/61 113/61 06/08/18 17:50 06/08/18 17:51 06/08/18 18:26 Temperature 98.0 F Pulse Rate 99 H Respiratory Rate 16 20 Blood Pressure 123/85 06/08/18 18:27 06/08/18 19:00 06/09/18 00:15 Temperature 98.1 F Pulse Rate 102 H 83 78 Respiratory Rate 16 Blood Pressure 126/71 110/62 122/54 L 06/09/18 06:16 06/09/18 07:19 06/09/18 08:12 Temperature 98.0 F Pulse Rate 79 86 Respiratory Rate 18 20 Blood Pressure 115/61 105/71 06/09/18 08:13 06/09/18 09:29 06/09/18 10:27 Temperature Pulse Rate 82 86 91 H Respiratory Rate Blood Pressure 116/64 110/60 130/79 06/09/18 10:30 06/09/18 10:55 Temperature 98.8 F Pulse Rate 97 H Respiratory Rate 20 Blood Pressure 120/64 Intake & Output 06/08/18 06/09/18 06/09/18 18:59 06:59 18:59 Intake Total 1000 / 1000 1100 / 1100 Balance 1000 / 1000 1100 / 1100 Intake: IV 1000 / 1000 1100 / 1100 LR 1000 mL Inj 1,000 ML @ 150 1000 / 1000 mls/hr IV.CONT .Q6H40M OMAR Rx#: [id number] Ampicillin Inj 2,000 MG In NS 100 / 100 Inj 100 ML @ 400 mls/hr IV.SIG Q6HR OMAR Rx#:[id number] LR 1000 mL Inj 1,000 ML @ 125 1000 / 1000 mls/hr IV.SIG .Q8H OMAR Rx#: [id number] Results - Labs CBC & Chem 7: 06/08/18 06:06 Assessment and Plan - Assessment (1) premature rupture of membranes (PPROM) with unknown onset of labor Code(s): O42.919 - premature rupture of membranes, unspecified as to length of time between rupture and onset of labor, unspecified trimester Status: Acute
[2018-06-09] MEDS: Docusate Sodium 100 MG Capsule PO SCH (14:01)
[2018-06-09] MEDS: Prenatal Vit/Ca/Iron/Folic Acid Tablet PO SCH (14:03)
--- NOTE | 2018-06-09 23:29 | P.PN ---
Subjective Interval history: The patient received oxytocin today without significant cervical change. The patient is in agreement with a trial of cervical ripening with Cervidil. Cervidil was placed at 2115 without difficulty and with reassuring heart tracing. Continue induction of labor, monitoring. Physical Exam Vital signs: Vital Signs 06/09/18 00:15 06/09/18 06:16 06/09/18 07:19 Temperature 98.1 F 98.0 F Pulse Rate 78 79 86 Respiratory Rate 16 18 Blood Pressure 122/54 L 115/61 105/71 06/09/18 08:12 06/09/18 08:13 06/09/18 09:29 Temperature Pulse Rate 82 86 Respiratory Rate 20 Blood Pressure 116/64 110/60 06/09/18 10:27 06/09/18 10:30 06/09/18 10:55 Temperature 98.8 F Pulse Rate 91 H 97 H Respiratory Rate 20 Blood Pressure 130/79 120/64 06/09/18 12:30 06/09/18 13:30 06/09/18 13:32 Temperature 98.1 F Pulse Rate 106 H 87 Respiratory Rate 20 20 Blood Pressure 118/61 120/58 L 06/09/18 14:51 06/09/18 16:06 06/09/18 16:30 Temperature 98.0 F Pulse Rate 88 89 Respiratory Rate 20 20 20 Blood Pressure 119/70 113/60 06/09/18 21:02 Temperature 97.9 F Pulse Rate 93 H Respiratory Rate 18 Blood Pressure 116/73 Intake & Output 06/09/18 06/09/18 06/10/18 06:59 18:59 06:59 Intake Total 2200 / 2200 4100 / 4100 Balance 2200 / 2200 4100 / 4100 Intake: IV 2200 / 2200 4100 / 4100 LR 1000 mL Inj 1,000 ML @ 150 1000 / 1000 1000 / 1000 mls/hr IV.CONT .Q6H40M OMAR Rx#: [id number] Ampicillin Inj 2,000 MG In NS 200 / 200 100 / 100 Inj 100 ML @ 400 mls/hr IV.SIG Q6HR OMAR Rx#:[id number] LR 1000 mL Inj 1,000 ML @ 125 1000 / 1000 3000 / 3000 mls/hr IV.SIG .Q8H OMAR Rx#: [id number] Results - Labs CBC & Chem 7: 06/08/18 06:06 Assessment and Plan - Assessment (1) premature rupture of membranes (PPROM) with unknown onset of labor Code(s): O42.919 - premature rupture of membranes, unspecified as to length of time between rupture and onset of labor, unspecified trimester Status: Acute
--- NOTE | 2018-06-10 09:38 | P.OBLABOR ---
Subjective Interval history: Patient seen at bedside this morning. Patient reports to be feeling well and had no acute events overnight. This morning at 0930 her Cervidil was removed and found to be at 2/50/-3. heart tracing baselines at 140, reactive, moderate variability, and infrequent variable decelerations. Objective Vital Signs: Vital Signs - 8 hr 06/10/18 04:09 06/10/18 07:51 06/10/18 07:52 Temperature 98.3 F 97.9 F Pulse Rate 90 80 Respiratory Rate 16 18 Blood Pressure 103/59 L 124/70 Objective: Pelvic Exam: Cervix: posterior Dilatation: 2cm Effacement: 50% Station: -3 Presentation: cephalic Membranes: ruptured Uterine Contractions: none FHT's: Category: 1 Baseline: 140 Reactive: Yes Variability: Moderate Decels: Infrequent variables Assessment and Plan - Diagnosis (1) premature rupture of membranes (PPROM) with unknown onset of labor Code(s): O42.919 - premature rupture of membranes, unspecified as to length of time between rupture and onset of labor, unspecified trimester Status: Acute - Plan 33 year old at 34wks and 3 days who is being induced first for vaginal delivery after presenting with PPROM on 05/30/18 at 2000hrs. Status post betamethasone X2. Patient has made minimal change overnight, cervdil in over night and removed this AM. Currently on 30 of Pitocin, plan discussed with patient. Continue to monitor heart strip, cervical checks every 4. -cervical checks every 4 - FHTs cat 1 - amnisure positive - Continue Ampicillin 2000 milligrams every 6 hours Pt and counseled on findings and plan of care. - Attending Attestation The patient was seen and examined by me. Reassuring testing, cervidil removed and will start oxytocin. All of the patient's questions were answered. SMS
[2018-06-10] MEDS: Docusate Sodium 100 MG Capsule PO SCH (09:45)
[2018-06-10] MEDS: Ferrous Sulfate 325 MG Tablet PO SCH (09:46)
[2018-06-10] MEDS: Prenatal Vit/Ca/Iron/Folic Acid Tablet PO SCH (09:46)
[2018-06-10] MEDS: Oxytocin 30 Units/500ml Premix 30 UNITS/500 ML BAG IV.SIG PRN (10:39)
[2018-06-11] MEDS ORDERED: Lidocaine 2% Jelly 5 ML Syringe TOPICAL ONE (05:28)
[2018-06-11] MEDS ORDERED: Lidocaine 1% Inj 50 ML Vial ONE (06:34)
[2018-06-11] MEDS ORDERED: Witch Hazel 50%/Glyderin 12.5% 40 Pad Jar RECTAL PRN (07:14)
[2018-06-11] MEDS ORDERED: Naloxone Inj 0.4 MG/ML Vial IV.PUSH PRN (07:14)
[2018-06-11] MEDS ORDERED: Acetaminophen 325 MG Tablet PO PRN (07:14)
[2018-06-11] MEDS ORDERED: Ibuprofen 400 MG Tablet PO PRN (07:14)
[2018-06-11] MEDS ORDERED: Benzocaine 20% Top Spray 60 ML Can TOPICAL PRN (07:14)
[2018-06-11] MEDS ORDERED: Oxytocin 30 Units/500ml Premix 30 UNITS/500 ML BAG IV.CONT SCH (07:15)
--- NOTE | 2018-06-11 07:19 | P.OBDELI ---
Weeks Gestation: 34 (PPROM at 33 wks) Patient Started Active Labor: No Medical Induction of Labor: Yes Medical Induction Start Date: 06/09/18 Artificial Rupture of Membrane: No (PPROM) Anesthesia: None Episiotomy: none Vaginal Delivery: Normal Presentation: Occiput anterior Nuchal Cord: x1 Delayed Cord Clamping (45 sec): Yes Placenta: Manual removal, Intact, Uterus explored + Laceration: Perineal, 1 deg Repair: Chromic interrupted Estimated blood loss (mL): 200 : Female Infant Female A Delivery Date: 06/11/18 Infant Delivery Time: 06:44 Weight: 2.22 kg score (1 min): 8 score (5 min): 9
[2018-06-11 07:24] LABS: Cord Arterial Blood HCO3 22.5
[2018-06-11] MEDS ORDERED: Bisacodyl 10 MG Supp RECTAL PRN (09:00)
[2018-06-11] MEDS: Ferrous Sulfate 325 MG Tablet PO SCH (10:35)
[2018-06-11] MEDS: Docusate Sodium 100 MG Capsule PO SCH (10:36)
[2018-06-11] MEDS: Prenatal Vit/Ca/Iron/Folic Acid Tablet PO SCH (10:37)
[2018-06-11] MEDS: Senna/Docusate Sodium 8.6/50 MG Tablet PO SCH (10:37)
[2018-06-11] MEDS ORDERED: Measles/Mumps/Rubella Vaccine Inj 0.5 ML Vial SQ ONE (16:00)
[2018-06-11] MEDS ORDERED: Diphtheria/Tetanus/Pertussis Vaccine Inj 0.5 ML Syringe IM ONE (16:00)
[2018-06-11] MEDS ORDERED: Zolpidem Tartrate 5 MG Tablet PO PRN (21:00)
[2018-06-12] MEDS: Ferrous Sulfate 325 MG Tablet PO SCH ×2 (07:36→09:51)
[2018-06-12] MEDS: Senna/Docusate Sodium 8.6/50 MG Tablet PO SCH ×2 (07:36→09:52)
--- NOTE | 2018-06-12 08:28 | P.PNOB ---
Subjective Interval history: Patient is a 33-year-old G 3 p to delivered at 34 weeks and 4 days after being admitted for PPROM on 05/30 at 2000 hrs. Patient is day 1 after induced vaginal delivery. Patient's pain is well-controlled. Patient reports eating and drinking without nausea or vomiting. She reports minimal vaginal bleeding and is ambulating well. Patient is urinating and passing flatus but has not yet had a bowel movement. Patient denies any chest pain, shortness of breath, nausea, vomiting, fever, chills, calf pain, or new lower extremity swelling. Objective Vital Signs/I&O: Vital Signs 06/11/18 10:35 06/11/18 21:42 Temperature 98.3 F 98.2 F Pulse Rate 78 84 Respiratory Rate 18 18 Blood Pressure 110/64 109/70 Result Diagrams: 06/08/18 06:06 Objective Remarks: GENERAL: Well-nourished, well-developed patient. CARDIOVASCULAR: Regular rate and rhythm without murmurs, gallops, or rubs. RESPIRATORY: Breath sounds equal bilaterally. No accessory muscle use. ABDOMEN/GI: Abdomen soft, non-tender. Fundus: Firm, non-tender at umbilicus. GENITOURINARY: Light to moderate bleeding. EXTREMITIES: No cyanosis or edema, non-tender, without signs of DVT. Medications and IVs: Active Medications Acetaminophen (Tylenol) 650 mg PO Q4H PRN PRN Reason: PAIN SCALE 1 TO 5 Acetaminophen (Tylenol) 650 mg PO Q4H PRN PRN Reason: PAIN SCALE 1 TO 2 Al Hydrox/Mg Hydrox/Simethicone (Mag-Al Plus Susp Liq) 30 ml PO QID PRN PRN Reason: HEARTBURN Al Hydroxide/Mg Hydroxide (Milk Of Magnesia Liq) 30 ml PO Q12H PRN PRN Reason: Mild Constipation Benzocaine (Americaine 20% Top [place]) 1 spray TOPICAL Q4H PRN PRN Reason: For Perineum Discomfort Bisacodyl (Dulcolax Supp) 10 mg RECTAL DAILY PRN PRN Reason: SEVERE CONSITIPATION Docusate Sodium (Colace) 100 mg PO DAILY [facility] Last Admin: 06/11/18 10:36 Dose: Not Given Ferrous Sulfate (Ferosul) 325 mg PO BID [facility] Last Admin: 06/12/18 07:36 Dose: Not Given Lactated Ringer's (Lr 1000 Ml Inj) 1,000 mls @ 125 mls/hr IV.SIG .Q8H [facility] Last Admin: 06/11/18 10:36 Dose: Not Given Lactated Ringer's (Lr 1000 Ml Inj) 1,000 mls @ 150 mls/hr IV.CONT .Q6H40M [facility] Last Admin: 06/11/18 10:36 Dose: Not Given Oxytocin (Pitocin 30 Units/Ns 500 Ml Premix) 30 units in 500 mls @ 1 mls/hr IV.SIG TITRATE PRN; Protocol PRN Reason: For induction of labor Last Admin: 06/10/18 10:39 Dose: 1 milliunit/min, 1 mls/hr Ibuprofen (Motrin) 800 mg PO Q8H PRN PRN Reason: For cramping Lactulose (Lactulose Liq) 30 ml PO DAILY PRN PRN Reason: SEVERE CONSITIPATION Naloxone HCl (Narcan Inj) 0.1 mg IV.PUSH Q2M PRN PRN Reason: for opiate reversal Ondansetron HCl (Zofran Inj) 4 mg IV.PUSH Q6H PRN PRN Reason: NAUSEA OR VOMITING Ondansetron HCl (Zofran Odt) 4 mg PO Q6H PRN PRN Reason: NAUSEA OR VOMITING Oxycodone/Acetaminophen (Percocet 5/325 Mg) 1 tab PO Q4H PRN PRN Reason: PAIN SCALE 3 TO 5 Vit/Calcium/Iron/Folic Ac (Stuartnatal Plus 3) 1 tab PO DAILY [facility] Last Admin: 06/11/18 10:37 Dose: Not Given Senna/Docusate Sodium (Marcela-Colace) 1 tab PO BID [facility] Last Admin: 06/12/18 07:36 Dose: Not Given Sennosides (Senokot) 17.2 mg PO Q12H PRN PRN Reason: Moderate Constipation Sodium Chloride (Ns Flush) 2 ml IV.FLUSH PRN PRN PRN Reason: FLUSH AFTER USING IV ACCESS Sodium Chloride (Ns Flush) 2 ml IV.FLUSH BID [facility] Last Admin: 06/12/18 07:31 Dose: Not Given Sodium Chloride (Ns Flush) 2 ml IV.FLUSH BID [facility] Last Admin: 06/12/18 07:31 Dose: Not Given Sodium Chloride (Ns Flush) 2 ml IV.FLUSH PRN PRN PRN Reason: FLUSH AFTER USING IV ACCESS Witch Genesis/Glycerin (Tucks Pads) 1 applicatio RECTAL QID PRN PRN Reason: HEMORRHOIDS Zolpidem Tartrate (Ambien) 5 mg PO HS PRN PRN Reason: SLEEP Zolpidem Tartrate (Ambien) 5 mg PO HS PRN PRN Reason: SLEEP Assessment and Plan - Diagnosis (1) premature rupture of membranes (PPROM) with unknown onset of labor Code(s): O42.919 - premature rupture of membranes, unspecified as to length of time between rupture and onset of labor, unspecified trimester Status: Acute - Plan Patient is a 33-year-old G 3 p to delivered at 34 weeks and 4 days after being admitted for PPROM on 05/30 at 2000 hrs. Patient is day 1 after induced vaginal delivery. Patient reports to be doing well had no issues overnight. Patient is ambulating without difficulty. Patient not interested in contraception at this time. -Continue routine care -Motrin and Percocet when necessary for pain -Encourage OOB -Pelvic rest for 6 weeks will need follow-up appointment at that time. -Anticipate discharge today
[2018-06-12 09:25] VITALS: BP 101/64; PULSE 70; RESP 20
[2018-06-12] MEDS: Prenatal Vit/Ca/Iron/Folic Acid Tablet PO SCH (09:50)
[2018-06-12 12:46] VITALS: TEMP 98
== END 2018-06-12 13:06 | disposition home or self-care (01) ==
LOC: HOBED 00:14 → H2E 01:21 → H1EA 06-11 09:22
PROVIDERS: ADMIT Obstetrics & Gynecology; ATTEND Obstetrics & Gynecology